=== PATIENT | male | born 1980 | race Caucasian/White ===

== ENCOUNTER → 2019-12-15 | Outpatient (CLI) | payer BC ==
--- NOTE | 2019-12-15 09:31 | RAD ---
EXAM DESCRIPTION: Hand,Left 3 Views CLINICAL HISTORY: HAND PN COMPARISON: None Available. TECHNIQUE: AP, lateral, and oblique views left hand. FINDINGS: No acute displaced fracture or dislocation. The osseous alignment is normal. Small bone island along the radial styloid base. No focal bony erosion or aggressive periosteal reaction seen. There are no significant arthritic changes. There is no radiopaque foreign body. The soft tissues are unremarkable. IMPRESSION: 1. No acute osseous abnormality involving the left hand. Electronically signed by: Poli Landry DO 12/15/2019 9:29 AM CDT
--- NOTE | 2019-12-15 09:36 | RAD ---
EXAM DESCRIPTION: Hand,Right 3 Views CLINICAL HISTORY: HAND PN COMPARISON: None Available. TECHNIQUE: AP, lateral, and oblique views right hand. FINDINGS: No acute displaced fracture or dislocation. The osseous alignment is normal. No focal bony erosion or aggressive periosteal reaction seen. Minimal early osteoarthrosis with small marginal osteophyte formation and subchondral sclerosis about the IP and MCP joints. Mild triscaphe the joint space narrowing with small subcortical cystic changes. There is no radiopaque foreign body. The soft tissues are unremarkable. IMPRESSION: 1. No acute osseous abnormality involving the right hand. 2. Minimal osteoarthrosis. Electronically signed by: Poli Landry DO 12/15/2019 9:33 AM CDT
== END ==
LOC: RAD 08:32
PROVIDERS: ATTEND Orthopaedic Surgery
DX: Z01.818 Encounter for other preprocedural examination (principal); M19.041 Primary osteoarthritis, right hand; M79.642 Pain in left hand

== ENCOUNTER 2020-01-06 05:27 | Day surgery (SDC) | payer BC ==
[2020-01-06] MEDS ORDERED: SODIUM CHLORIDE 0.9% 250ML 250 ML ONE (05:58)
[2020-01-06] MEDS ORDERED: LACTATED RINGERS 1,000 ML ONE (05:58)
[2020-01-06] MEDS ORDERED: VANCOMYCIN HCL INJ 1,000 MG VIAL IVPB ONE ×3 (05:58→09:25)
[2020-01-06] MEDS ORDERED: LIDOCAINE 1% 10 ML VIAL INJ ONE ×2 (07:25→09:25)
[2020-01-06] MEDS ORDERED: ceFAZolin SODIUM 1 GM VIAL ONE (07:25)
[2020-01-06] MEDS ORDERED: BUPIVACAINE 0.25% INJ 30 ML VIAL INJ ONE ×2 (07:25→09:25)
[2020-01-06] MEDS ORDERED: MIDAZOLAM INJ 2 MG/2 ML VIAL ONE (09:16)
[2020-01-06] MEDS ORDERED: fentaNYL CITRATE INJ 50 MCG/ML 2 ML AMP ONE (09:16)
[2020-01-06] MEDS ORDERED: KETAMINE HCL 100 MG/ML VIAL ONE (09:16)
[2020-01-06] MEDS ORDERED: PROPOFOL 200 MG/20 ML VIAL IV ONE (10:00)
[2020-01-06 10:18] VITALS: BP 115/78; TEMP 98.4; O2SAT 95
--- NOTE | 2020-01-06 11:22 | OP ---
DATE OF PROCEDURE: 01/06/20 PREOPERATIVE DIAGNOSIS: 1. Left carpal tunnel syndrome. POSTOPERATIVE DIAGNOSIS: 1. Left carpal tunnel syndrome. PROCEDURE: 1. Carpal tunnel release. SURGEON: Armando Chery MD. QUALIFICATIONS EXAMINER: Rad Castaneda CST, SA-C. ANESTHESIA: Local with sedation. COMPLICATIONS: None. FINDINGS: 1. Thickening of the transverse carpal ligament. 2. Narrowing of the median nerve. INDICATION: Ramses has a history of symptoms consistent with carpal tunnel syndrome. He has been unable to get relief with conservative measures. As such, he has requested operative intervention. After discussing the risks, benefits and alternatives to that, the patient has given informed consent for carpal tunnel release. PROCEDURE: The patient was brought to the Operating Room and placed in the supine position. Sedation was administered and local anesthetic was injected into the operative area under sterile conditions. After the injection of anesthetic, the arm was sterilely prepped and draped. A longitudinal incision was made directly overlying the transverse carpal ligament and blunt dissection was carried down to the ligament. The transverse carpal ligament was sharply transected along its length and a [place] elevator was used to ensure complete release of the ligament. Once release had been confirmed, the wound was thoroughly irrigated and the wound was closed with Nylon suture. A sterile dressing was placed and the patient was taken to the Day Surgery Unit. POSTOPERATIVE PLAN: The patient has been encouraged to do range of motion of the digits and will followup with us in two days. #[id number] [facility]
== END 2020-01-06 10:45 | disposition home or self-care (01) ==
LOC: AMB 05:27
PROVIDERS: ATTEND Orthopaedic Surgery
DX: G56.03 Carpal tunnel syndrome, bilateral upper limbs (principal); I10 Essential (primary) hypertension; E66.9 Obesity, unspecified; F41.9 Anxiety disorder, unspecified; Z79.899 Other long term (current) drug therapy; Z88.0 Allergy status to penicillin
CPT/HCPCS: 01810; 64721; 80307; J2250; J3010; J3370; J3490; J7050; J7120

== ENCOUNTER → 2020-01-15 | Outpatient (CLI) | payer BC | LOC: LAB.O 10:14 | PROVIDERS: ATTEND Orthopaedic Surgery | DX: Z01.818 Encounter for other preprocedural examination (principal) ==

== ENCOUNTER 2020-01-28 05:30 | Day surgery (SDC) | payer BC ==
[2020-01-28] MEDS ORDERED: SODIUM CHLORIDE 0.9% (FLUSH) 10 ML SYG ONE (06:36)
[2020-01-28] MEDS ORDERED: SODIUM CHL 0.9% 100ML MINI-BAG 100 ML IVPB ONE (06:36)
[2020-01-28] MEDS ORDERED: LACTATED RINGERS 1,000 ML ONE (06:37)
[2020-01-28] MEDS ORDERED: ceFAZolin SODIUM 1 GM VIAL ONE ×2 (06:37→11:14)
[2020-01-28] MEDS ORDERED: PROPOFOL 200 MG/20 ML VIAL IV ONE (07:00)
[2020-01-28] MEDS ORDERED: MIDAZOLAM INJ 2 MG/2 ML VIAL ONE (10:20)
[2020-01-28] MEDS ORDERED: fentaNYL CITRATE INJ 50 MCG/ML AMP ONE (10:54)
[2020-01-28] MEDS ORDERED: MIDAZOLAM INJ 5 MG/5 ML VIAL ONE (10:54)
[2020-01-28] MEDS ORDERED: BUPIVACAINE 0.25% INJ 30 ML VIAL INJ ONE ×2 (11:14→11:27)
[2020-01-28] MEDS ORDERED: VANCOMYCIN HCL INJ 1,000 MG VIAL IVPB ONE ×2 (11:14→11:27)
[2020-01-28] MEDS ORDERED: LIDOCAINE 1% 10 ML VIAL INJ ONE ×2 (11:14→11:27)
[2020-01-28] MEDS ORDERED: ceFAZolin SODIUM 1 GM VIAL IRRIG ONE (11:27)
[2020-01-28] MEDS ORDERED: HYDROcodone 5MG/APAP 325MG 1 EA TAB ONE (12:57)
[2020-01-28] MEDS ORDERED: HYDROcodone 5MG/APAP 325MG 1 EA TAB PO ONE (12:57)
[2020-01-28 13:41] VITALS: BP 134/85; TEMP 97.5; O2SAT 98
--- NOTE | 2020-01-29 19:55 | OP ---
PREOPERATIVE DIAGNOSIS: 1. Carpal tunnel syndrome. POSTOPERATIVE DIAGNOSIS: 1. Carpal tunnel syndrome. PROCEDURE: 1. Carpal tunnel release. SURGEON: Armando Chery M.D. TAX SPECIALIST: None. ANESTHESIA: Local with sedation. COMPLICATIONS: None. FINDINGS: Thickening of the transverse carpal ligament and narrowing of the media nerve across the carpal tunnel. INDICATION FOR PROCEDURE: Ramses has a history of carpal tunnel syndrome as well as cubital tunnel syndrome. Ramses and I have discussed the findings and also his options. Despite having both carpal tunnel and cubital tunnel syndrome, he has elected to only treat for the carpal tunnel syndrome. After discussing the risks, benefits, and alternatives to that, he gave informed consent for carpal tunnel release. PROCEDURE: The patient was brought to the Operating Room and placed in the supine position. Sedation was administered and local anesthetic was injected into the operative area under sterile conditions. After the injection of anesthetic, the arm was sterilely prepped and draped. A longitudinal incision was made directly overlying the transverse carpal ligament and blunt dissection was carried down to the ligament. The transverse carpal ligament was sharply transected along its length and a [place] elevator was used to ensure complete release of the ligament. Once release had been confirmed, the wound was thoroughly irrigated and the wound was closed with Nylon suture. A sterile dressing was placed and the patient was taken to the Day Surgery Unit. POSTOPERATIVE INSTRUCTIONS: He will be doing range of motion of the digits and will followup with us in 2 days. #[id number] MTDD
== END 2020-01-28 13:30 | disposition home or self-care (01) ==
LOC: AMB 05:30
PROVIDERS: ATTEND Orthopaedic Surgery
DX: G56.01 Carpal tunnel syndrome, right upper limb (principal); E66.9 Obesity, unspecified; I10 Essential (primary) hypertension; E78.5 Hyperlipidemia, unspecified; Z88.0 Allergy status to penicillin; Z79.899 Other long term (current) drug therapy; Z87.891 Personal history of nicotine dependence
CPT/HCPCS: 01810; 64721; 80307; A4216; J0690; J2250; J3010; J3370; J7050; J7120

== ENCOUNTER 2020-03-10 05:38 | Day surgery (SDC) | payer BC ==
[2020-03-10] MEDS ORDERED: SODIUM CHL 0.9% 100ML MINI-BAG 100 ML IVPB ONE (06:07)
[2020-03-10] MEDS ORDERED: LACTATED RINGERS 1,000 ML ONE (06:07)
[2020-03-10] MEDS ORDERED: ceFAZolin SODIUM 1 GM VIAL ONE ×2 (06:07→06:35)
[2020-03-10] MEDS ORDERED: BUPIVACAINE 0.25% W/EPI 50 ML VIAL INJ ONE (06:35)
[2020-03-10] MEDS ORDERED: VANCOMYCIN HCL INJ 1,000 MG VIAL IVPB ONE ×2 (06:35→09:46)
[2020-03-10] MEDS ORDERED: LACTATED RINGERS 1,000 ML IVS ONE (06:38)
[2020-03-10] MEDS ORDERED: PROPOFOL 200 MG/20 ML VIAL IV ONE (07:00)
[2020-03-10] MEDS ORDERED: ONDANSETRON INJ 4 MG/2 ML VIAL ONE (07:00)
[2020-03-10] MEDS ORDERED: LIDOCAINE 1% 10 ML VIAL INJ ONE (07:00)
[2020-03-10] MEDS ORDERED: DEXAMETHASONE INJ 10 MG/ML VIAL ONE (07:00)
[2020-03-10] MEDS ORDERED: fentaNYL CITRATE INJ 50 MCG/ML AMP ONE ×2 (07:24→12:32)
[2020-03-10] MEDS ORDERED: MIDAZOLAM INJ 2 MG/2 ML VIAL ONE (07:24)
[2020-03-10] MEDS ORDERED: BUPIVACAINE 0.5% 30 ML VIAL INJ ONE (07:46)
[2020-03-10] MEDS ORDERED: BUPIVACAINE LIPOSOME 13.3 MG/ML VIAL INJ ONE ×2 (09:39→09:45)
[2020-03-10] MEDS ORDERED: BUPIVACAINE 0.25% INJ 30 ML VIAL INJ ONE ×2 (09:39→09:45)
[2020-03-10] MEDS ORDERED: ceFAZolin SODIUM 1 GM VIAL IRRIG ONE (09:45)
[2020-03-10] MEDS ORDERED: LACTATED RINGERS 50 ML IVS ONE (12:14)
[2020-03-10] MEDS ORDERED: HYDROcodone 5MG/APAP 325MG 1 EA TAB ONE (13:06)
[2020-03-10 13:57] VITALS: BP 120/72; TEMP 97.8; O2SAT 94
--- NOTE | 2020-03-12 08:45 | OP ---
DATE OF PROCEDURE: 03/10/20 PREOPERATIVE DIAGNOSIS: 1. 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 POSTOPERATIVE DIAGNOSIS: 1. 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 PROCEDURE: 1. Ulnar nerve transposition. SURGEON: Armando Chery MD. ACTIVITIES LEADER: Rad Castaneda CST, SA-C. ANESTHESIA: General anesthesia. COMPLICATIONS: None. FINDINGS: Compression of the ulnar nerve across the cubital tunnel. INDICATION: Ramses has a history of bilateral carpal tunnel syndrome associated with bilateral cubital tunnel syndrome. He has had issues going on for quite some time and has requested operative intervention. After discussing the risks, benefits and alternatives to operative therapy, the patient gave informed consent for ulnar nerve transposition. PROCEDURE: The patient was brought to the Operating Room and placed in the supine position. General anesthesia was induced and the patient's arm was sterilely prepped and draped. An incision was made between the medial epicondyle and olecranon. Blunt dissection was carried down to the ulnar nerve which was identified proximally. Vessel loop was passed and the nerve was followed distally and released from the cubital tunnel. The soft tissues overlying the medial epicondyle were elevated. The nerve was transposed and a Silk suture was used to reapproximate the tissues to the periosteum. Care was taken to ensure the nerve was free of the repair. The wound was very thoroughly irrigated and closed with combination of running and interrupted subcuticular stitches. Sterile dressings were placed. The patient was awoken from anesthesia and taken to Recovery. POSTOPERATIVE PLAN: The patient will be doing range of motion of the digits and will followup with us in two days. We will allow him range of motion of the elbow at that time. #[id number] [facility]
== END 2020-03-10 13:55 | disposition home or self-care (01) ==
LOC: AMB 05:38
PROVIDERS: ATTEND Orthopaedic Surgery
DX: G56.21 Lesion of ulnar nerve, right upper limb (principal); I10 Essential (primary) hypertension; Z88.0 Allergy status to penicillin; Z79.899 Other long term (current) drug therapy
CPT/HCPCS: 01710; 36415; 64718; 80048; 80307; 81001; 85025; 93005; J0690; J1100; J2250; J2405; J3010; J3370; J3490; J7050; J7120

== ENCOUNTER → 2020-03-26 | Outpatient (CLI) | payer BC | LOC: LAB.O 11:27 | PROVIDERS: ATTEND Orthopaedic Surgery | DX: Z01.818 Encounter for other preprocedural examination (principal) ==

== ENCOUNTER 2020-04-21 05:32 | Day surgery (SDC) | payer BC ==
[2020-04-21] MEDS ORDERED: LACTATED RINGERS 1,000 ML ONE (06:00)
[2020-04-21] MEDS ORDERED: SODIUM CHL 0.9% 100ML MINI-BAG 100 ML IVPB ONE (06:00)
[2020-04-21] MEDS ORDERED: ceFAZolin SODIUM 1 GM VIAL ONE (06:00)
[2020-04-21] MEDS ORDERED: BUPIVACAINE LIPOSOME 13.3 MG/ML VIAL INJ ONE (06:18)
[2020-04-21] MEDS ORDERED: FAMOTIDINE INJ 10 MG/ML VIAL IV ONE (06:19)
[2020-04-21] MEDS ORDERED: MIDAZOLAM INJ 2 MG/2 ML VIAL ONE (06:19)
[2020-04-21] MEDS ORDERED: LACTATED RINGERS 1,000 ML IVS ONE (06:30)
[2020-04-21] MEDS ORDERED: PROPOFOL 200 MG/20 ML VIAL IV ONE (07:00)
[2020-04-21] MEDS ORDERED: LIDOCAINE 1% 10 ML VIAL INJ ONE (07:00)
[2020-04-21] MEDS ORDERED: SODIUM CHLORIDE 0.9% 50 ML VIAL ONE (07:00)
[2020-04-21] MEDS ORDERED: DEXAMETHASONE INJ 10 MG/ML VIAL ONE (07:00)
[2020-04-21] MEDS ORDERED: MAGNESIUM SULFATE INJ 1 GM/2 ML VIAL ONE (07:00)
[2020-04-21] MEDS: BUPIVACAINE LIPOSOME 13.3 MG/ML VIAL INJ ONE ×2 (07:40→09:00)
[2020-04-21] MEDS: ceFAZolin SODIUM 1 GM VIAL ONE ×2 (07:40→09:00)
[2020-04-21] MEDS: BUPIVACAINE 0.5% 30 ML VIAL INJ ONE ×2 (07:40→09:00)
[2020-04-21] MEDS: VANCOMYCIN HCL INJ 1,000 MG VIAL IVPB ONE ×2 (07:41→09:00)
[2020-04-21] MEDS ORDERED: fentaNYL CITRATE INJ 50 MCG/ML 2 ML AMP ONE (08:09)
[2020-04-21] MEDS ORDERED: DEXMEDETOMIDINE HCL 200 MCG/2 ML INJ IV ONE (08:16)
[2020-04-21] MEDS ORDERED: HYDROcodone 5MG/APAP 325MG 1 EA TAB ONE (10:19)
[2020-04-21 11:17] VITALS: BP 110/72; TEMP 96.1; O2SAT 94
--- NOTE | 2020-04-26 09:20 | OP ---
DATE OF PROCEDURE: 04/21/20 PREOPERATIVE DIAGNOSIS: 1. Left cubital tunnel syndrome. POSTOPERATIVE DIAGNOSIS: 1. Left cubital tunnel syndrome. PROCEDURE: 1. Ulnar nerve transposition. SURGEON: Armando Chery MD. RAILROAD WORKER: Rad Castaneda CST, SA-C. ANESTHESIA: General anesthesia. COMPLICATIONS: None. FINDINGS: Compression of the ulnar nerve across the cubital tunnel. INDICATION: Mr. Quiroz has a history of numbness in the distribution of the ulnar nerve. He has had bilateral carpal tunnel release as well as right cubital tunnel release. Because of his ongoing symptoms on the left, he has requested operative intervention. After discussing the risks, benefits and alternatives to operative intervention, the patient gave informed consent for that. PROCEDURE: The patient was brought to the Operating Room and placed in the supine position. General anesthesia was induced and the patient's arm was sterilely prepped and draped. An incision was made midway between the medial epicondyle and olecranon. Blunt dissection was carried down to the level of the ulnar nerve which was identified proximally. A vessel loop was passed to manipulate the nerve atraumatically. The nerve was freed from proximal to distal. Once it was fully freed, it was transposed. The subcutaneous tissues medially were sewn to the periosteum, taking care to ensure the nerve was not entrapped. The arm was taken through a range of motion and the repair was stable. The wound was very thoroughly irrigated and the skin was closed with combination of running and interrupted subcuticular stitches. Sterile dressings were placed. The patient was placed in a splint, awoken from anesthesia and taken to Recovery. POSTOPERATIVE PLAN: The patient will followup with us in two days. #[id number] MTDD
== END 2020-04-21 10:58 | disposition home or self-care (01) ==
LOC: AMB 05:32
PROVIDERS: ATTEND Orthopaedic Surgery
DX: G56.22 Lesion of ulnar nerve, left upper limb (principal); F41.0 Panic disorder [episodic paroxysmal anxiety]; Z88.0 Allergy status to penicillin; Z79.899 Other long term (current) drug therapy
CPT/HCPCS: 01710; 64718; 80307; A4216; J0690; J1100; J2250; J3010; J3370; J3475; J3490; J7050; J7120